=== PATIENT | male | born 1960 | race Caucasian/White ===

== ENCOUNTER → 2020-09-12 09:27 | Outpatient (BNVA) | payer BC, SELFPAY | PROVIDERS: Family Provider Nurse Practitioner Family; PCP Nurse Practitioner Family; Visit Provider Family Medicine | DX: M10.9 Gout, unspecified (principal); M17.12 Unilateral primary osteoarthritis, left knee; Z68.37 Body mass index [BMI] 37.0-37.9, adult; F17.211 Nicotine dependence, cigarettes, in remission | CPT/HCPCS: 80053; 84550; 85025; 85651 ==

== ENCOUNTER 2022-06-02 12:32 | Outpatient (CLI) | payer OTHER, SELFPAY ==
--- NOTE | 2022-06-02 12:44 | MR_ITS ---
WS: [id number] MRI RIGHT KNEE NONCONTRAST TECHNIQUE: Axial PD, coronal PD fat sat, coronal PD, sagittal PD, and sagittal PD fat-sat images obta ined. CLINICAL INFORMATION: R MEDIAL KNEE PAIN COMPARISON: None. FINDINGS: Distal quadriceps and patella tendons are intact. Hypertrophic patella. Prepatellar soft tissue edema with a small amount of prepatellar fluid. Normal ACL and PCL. Chronic thinning of the medial and lat eral meniscus. Peripheral extrusion of the medial meniscus with chronic thinning. Chronic appearing i ntrasubstance signal abnormality involving the posterior horn medial meniscus extending to the menisc al root. Complex tear with radial and horizontal components extends to the meniscal root. Blunting of the meniscal root. Moderate suprapatellar effusion. Moderate chondromalacia involving the medial and lateral joint compartments. Lateral collateral liga ment appears intact. Grade 2 injury involving the MCL with fluid along the deep and superficial MCL f ibers. MCL appears grossly intact with intrasubstance T2 signal abnormality. Small lobulated poplitea l cyst measuring 1.7 x 0.6 cm. Moderate chondromalacia patella worse involving the medial patella fac et. MR/MR knee RT wo con* [id number] IMPRESSION: 1. ACL and PCL are intact. 2. Small amount of prepatellar bursitis. 3. Complex tear with blunting involving the medial meniscus at the meniscal ro ot with blunting of the meniscal root. Peripheral extrusion medial meniscus. 4. Grade 2 injury of the MCL with fluid along the superficial and deep fibers of the MCL with a small amount of intrasubstance T2 signal abnormality. MCL is otherwise appears grossly intact. 5. 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 6. Moderate supra patellar effusion. 7. Tiny lobulated popliteal cyst. Outbridge grading: grade III: partial-thickness cartilage loss with focal ulcer ation
== END 2022-06-02 12:33 | disposition home or self-care (01) ==
LOC: RAD 12:33
PROVIDERS: PCP Nurse Practitioner Family; Visit Provider Nurse Practitioner Family
DX: S83.411A Sprain of medial collateral ligament of right knee, initial encounter; X58.XXXA Exposure to other specified factors, initial encounter; M22.41 Chondromalacia patellae, right knee; S83.231A Complex tear of medial meniscus, current injury, right knee, initial encounter; M70.41 Prepatellar bursitis, right knee; M25.461 Effusion, right knee
CPT/HCPCS: 73721